=== PATIENT | male | born 1985 | race Caucasian/White ===

== ENCOUNTER 2017-05-02 19:29 | Emergency (ER) | payer OTHER ==
[~2017-05-02] VITALS: Ht 167.6 cm; Wt 104.5 kg
[2017-05-02 19:34] VITALS: TEMP 98.5
[2017-05-02] MEDS ORDERED: BRINTELLIX20 PO (19:37)
[2017-05-02] MEDS ORDERED: MINIPRESS2 MG PO (19:37)
[2017-05-02] MEDS ORDERED: BUSPAR5 MG PO (19:37)
[2017-05-02] MEDS ORDERED: VOLTAREN 75 DR75 MG PO (21:15)
[2017-05-02] MEDS ORDERED: NORCO 325 MG-51 TAB PO (21:15)
[2017-05-02 22:19] VITALS: BP 118/81; PULSE 74
== END 2017-05-02 22:01 | disposition home or self-care (01) ==
LOC: COL.ER 19:29
DX: S83.32XA Tear of articular cartilage of left knee, current, initial encounter (principal); I10 Essential (primary) hypertension; F90.9 Attention-deficit hyperactivity disorder, unspecified type; F43.10 Post-traumatic stress disorder, unspecified; Z87.828 Personal history of other (healed) physical injury and trauma; X50.1XXA Overexertion from prolonged static or awkward postures, initial encounter; Y92.009 Unspecified place in unspecified non-institutional (private) residence as the place of occurrence of the external cause
CPT/HCPCS: J1885; L1830

== ENCOUNTER → 2017-05-02 | Outpatient (CLI) | payer OTHER ==
[~2017-05-02] MED LIST: BRINTELLIX20 PO; BUSPAR5 MG PO; MINIPRESS2 MG PO; NORCO 325 MG-51 TAB PO; VOLTAREN 75 DR75 MG PO
== END ==
LOC: COL.LAB 11:54
DX: R73.09 Other abnormal glucose (principal)

== ENCOUNTER 2018-12-13 10:04 | Emergency (ER) | payer OTHER ==
[~2018-12-13] VITALS: Ht 167.6 cm; Wt 106.8 kg
[2018-12-13 10:14] VITALS: BP 143/86; TEMP 97.5
[2018-12-13] MEDS ORDERED: FLEXERIL 1010 MG/TAB PO (13:44)
[2018-12-13 14:21] VITALS: PULSE 87
== END 2018-12-13 14:21 | disposition home or self-care (01) ==
LOC: COL.ER 10:04
DX: S22.050A Wedge compression fracture of T5-T6 vertebra, initial encounter for closed fracture (principal); S22.060A Wedge compression fracture of T7-T8 vertebra, initial encounter for closed fracture; S22.070A Wedge compression fracture of T9-T10 vertebra, initial encounter for closed fracture; S22.080A Wedge compression fracture of T11-T12 vertebra, initial encounter for closed fracture; M51.34 Other intervertebral disc degeneration, thoracic region; F32.9 Major depressive disorder, single episode, unspecified; F43.10 Post-traumatic stress disorder, unspecified; Z98.52 Vasectomy status; Z98.890 Other specified postprocedural states
CPT/HCPCS: J1885